=== PATIENT | female | born 1940 | race Caucasian/White ===

== ENCOUNTER → 2018-08-21 15:04 | Outpatient (CLI) | payer MEDICARE, OTHER, SELFPAY ==
--- NOTE | 2018-08-21 15:12 | XR_ITS ---
XR foot wt bearing LT 3V HISTORY: ITS.REASON: pain ORDERING PHYSICIAN: Sonja Page DPM PATIENT AGE: 77 years COMPARISON: None FINDINGS: There is mild hallux valgus with osteoarthritic change of the first metatarsophalangeal joint and bunion formation of the distal aspect of the first metatarsal. Flexion deformity involves the second toe. Otherwise negative. IMPRESSION: 1. Hallux valgus with osteoarthritis and bunion formation. 2. Hemorrhage noted deformity second toe
--- NOTE | 2018-08-21 15:12 | XR_ITS ---
XR foot wt bearing RT 3V HISTORY: Foot pain ITS.REASON: pain ORDERING PHYSICIAN: Sonja Page DPM PATIENT AGE: 77 years COMPARISON: None FINDINGS: There are hypertrophic changes along the anterior aspect of the navicular cuneiform joint on the lateral view. Faint calcification is noted over the plantar surface of the calcaneus on the oblique view.. There are some mild subcortical cystic changes of the navicular as seen on the AP view. No fracture or dislocation. No lytic or blastic change. IMPRESSION: Mild degenerative changes as described above. No acute finding
== END ==
PROVIDERS: PCP Internal Medicine; Visit Provider Podiatrist
DX: M79.671 Pain in right foot (principal); M79.672 Pain in left foot
CPT/HCPCS: 73630